=== PATIENT | female | born 1960 | race Caucasian/White ===

== ENCOUNTER → 2024-01-05 17:03 | Outpatient (REF) | payer BC, SELFPAY | LOC: WDC 17:03 | PROVIDERS: ATTENDING PHYSICIAN Obstetrics & Gynecology; FAMILY PHYSICIAN Internal Medicine | DX: Z12.31 Encounter for screening mammogram for malignant neoplasm of breast (principal) | CPT/HCPCS: 77063; 77067 ==

== ENCOUNTER → 2024-04-11 14:20 | Outpatient (REF) | payer BC, SELFPAY | LOC: RAD 14:20 | PROVIDERS: ATTENDING PHYSICIAN Obstetrics & Gynecology; FAMILY PHYSICIAN Internal Medicine | DX: Z78.0 Asymptomatic menopausal state (principal) | CPT/HCPCS: 77080 ==

== ENCOUNTER 2024-10-24 12:41 | Emergency (ER) | payer BC, SELFPAY ==
[2024-10-24 12:46] VITALS: BP 169/90
[2024-10-24 13:22] LABS: % Basophils 0.7 % (0-2); % Eosinophils 1.2 % (0-6); % Immature Granulocytes 0.3 % (0-0.5); % Lymphocytes 30.2 % (20.5-51.1); % Neutrophils 60.6 % (42.2-75.2); Absolute Basophils 0.1 10^3/uL (0-0.2); Absolute Eosinophils 0.1 10^3/uL (0-0.7); Absolute Lymphocytes 2.7 10^3/uL (1.2-3.4); Absolute Monocytes 0.6 10^3/uL (0.1-0.6); Absolute Neutrophils 5.5 10^3/uL (1.4-6.5); Hematocrit 43.8 % (37.0-47.0); Mean Corpuscular Hgb 29.3 pg (27.0-31.0); Mean Corpuscular Volume 91.6 fL (81.0-99.0); Mean Platelet Volume 9.2 fL (7.4-10.4); Nucleated Red Blood Cells % 0 %; Platelet Count 345 10^3/uL (130-400); Red Blood Cell Count 4.78 10^6/uL (4.20-5.40); Red Cell Dist. Width 12.8 % (11.5-14.5)
[2024-10-24 13:36] LABS: ALT (SGPT) 24 U/L (0-35); AST (SGOT) 29 U/L (14-36); Albumin 4.5 g/dl (3.5-5.0); Alkaline Phosphatase 115 U/L (38-126); Blood Urea Nitrogen 22 mg/dl (7-17); Calcium 9.7 mg/dl (8.4-10.2); Carbon Dioxide 31 mmol/L (22-30); Chloride 101 mmol/L (98-107); Glucose 104 mg/dl (70-99); Potassium 4.3 mmol/L (3.5-5.1); Sodium 140 mmol/L (135-145); Total Bilirubin 0.8 mg/dl (0.2-1.3); Total Protein 7.9 g/dl (6.3-8.2); eGFR > 60.00
[2024-10-24 13:43] LABS: Troponin I < 0.012 ng/ml
[2024-10-24 14:53] VITALS: BP 159/87
--- NOTE | 2024-10-24 15:44 | ED.GENMED ---
History of Present Illness
General
Chief Complaint: Abdominal Pain
Source: patient and records
Exam Limitations: none
Time Seen by Provider: 10/24/24 15:11
Nursing documentation reviewed up to this point in time: agreed with
History of Present Illness
History of Present Illness:
64-year-old female with a past medical history of hypertension, hyperlipidemia, hypothyroidism who presents to the emergency room for evaluation after episode of chest pain/epigastric pain. Patient reports onset of symptoms while she was driving at
around 11:45 AM; she says that initially she thought it was gas pain but when symptoms did not go away after few minutes she spoke with her and ultimately decided to come to the emergency to be evaluated. She says shortly after arrival here
symptoms resolved and she is now asymptomatic�she says total duration was about an hour. She describes a burning/cramping pain in the epigastrium/lower chest that radiated slightly towards the right. No clear trigger or relieving factor noted.
She denies any associated shortness of breath. She denies any nausea, vomiting, diaphoresis. She denies any dizziness or lightheadedness. Denies any palpitations. She denies any recent cough or fever and was in her normal state of health prior
to onset. She denies having had similar symptoms in the past. She denies any personal history of cardiac disease but does see Dr. Felix for routine screening due to a strong family history of heart disease including [place] in the early 60s by both her
brother and her father.
Past History
Past History
ED Past Medical History: HTN, NIDDM, Hypothyroidism and Other (Hernia that they are watching.)
ED Past Surgical History: None
Social History
Tobacco: Non-smoker
Alcohol: None
Personal:
Living: with family
Employment: Employed
Family History
Family History: Other (Noncontributory)
Review of Systems
Review of Systems
All Other Systems: ROS reviewed and negative except as documented in HPI and ROS
Constitutional: Denies fever or chills
Respiratory: Denies trouble breathing
Cardiac: Reports chest pain; Denies diaphoresis, palpitations or syncope
ABD/GI: Denies abdominal pain, nausea or vomiting
: Denies flank pain
Musculoskeletal: Denies neck pain or back pain
Neurological: Denies dizzy or headache
Phy Exam
Physical Exam
Physical Exam:
General: Awake, alert, oriented x3; no acute distress
Head: Normocephalic, atraumatic
Eyes: Conjunctiva normal, sclera anicteric
Throat: Airway intact, handling secretions
Neck: Trachea midline, supple without meningismus
Lungs: Clear to auscultation bilaterally, no wheezing, rales, rhonchi
Heart: Regular rate and rhythm, no murmurs, gallops, or rubs
Abd: Soft, non distended, nontender
Neuro: No gross deficits
Extremities: No edema in extremities, equal pulses in all extremities
Scores
Heart Failure Risk
Heart Failure Risk Score: Not Applicable
Heart Score for Chest Pain Patients
STEMI patient?: No
History: Slightly or Non-Suspicious
ECG: Normal
Age: >45 - <65 years
Risk Factors: >/= 3 Risk Factors or History of CAD
Troponin: </= Normal Limit
Heart Score for Chest Pain Patients: 3
Heart Score Risk: 2.5% MACE over next 6 weeks
Withdrawal Assessment of Alcohol
Withdrawal Assessment Completed?: Not applicable
Course
Orders/Labs/Results
Orders:
Orders
10/24/24 12:43
Electrocardiogram (*1) Urgent
Reason for Study: Chest Pain
EKG- Treatment ONCE
10/24/24 13:08
Complete Blood Count/With Diff Urgent
Comprehensive Metabolic Panel Urgent
Lipase Urgent
Comment: ADD ON
Troponin I Urgent
10/24/24 15:14
Add On- LAB Urgent
Tests Added?: lipase
10/24/24 15:31
Troponin I Urgent
10/24/24 15:44
US Abdomen Complete/Upper Urgent
Comment:
Reason For Exam: epigastric pain radiating to RUQ
Abnormal Lab Results
10/24/24
13:08
MCHC 32.0 L g/dL
(33.0-37.0)
Carbon Dioxide 31 H mmol/L
(22-30)
BUN 22 H mg/dl
(7-17)
Glucose 104 H mg/dl
(70-99)
10/24/24 13:08
10/24/24 13:08
Vital Signs
Initial and Last Documented VS:
Initial Vital Signs
Temp Pulse Resp BP Pulse Ox
36.8 C 82 20 169/90 100
10/24/24 12:46 10/24/24 12:46 10/24/24 12:46 10/24/24 12:46 10/24/24 12:46
Last Documented Vital Signs
Temp Pulse Resp BP Pulse Ox
36.8 C 79 20 159/87 100
10/24/24 12:46 10/24/24 14:53 10/24/24 12:46 10/24/24 14:53 10/24/24 14:53
MDM/Problems Addressed
Differential Diagnosis Includes:
Angina/ACS, GERD/gastritis, cholelithiasis/cholecystitis
MDM/Problems Addressed:
64-year-old female presents to the emergency room for evaluation of nonexertional/atypical lower chest/epigastric pain radiating towards the right. Symptoms lasted for about an hour and have resolved. Hypertensive but otherwise normal vitals.
Physical exam as above. She had an EKG in triage which shows no changes from prior. Labs sent in triage including a CBC and a CMP which were unremarkable, troponin which was undetectable x 1. Given timing of symptoms we will send serial repeat
troponin. Add on lipase to earlier labs. Will check an upper abdominal ultrasound as well. Monitor closely reassess after the above.
Repeat troponin undetectable. Upper abdominal sound negative for any acute pathology. Lipase normal. Vitals have been stable patient asymptomatic on clinical reassessment. Low suspicion for emergent pathology at this point in time, given her
family history will refer to cardiology for outpatient follow-up but symptoms sound atypical for anginal symptoms suspect more likely that this was episode of GERD. Will have her follow-up with cardiology and PCP as an outpatient. She feels
comfortable to this plan. All questions answered.
Chronic conditions affecting care:
Hypertension, hyperlipidemia
Acute Exacerbation and/or Progression of Chronic Illness:
Acutely hypertensive with no signs or symptoms of hypertensive emergency�no indication for emergent antihypertensives and in fact symptoms have improved without intervention
Acute Exacerbation and/or Progression of Chronic Illness: HTN
*Radiology
Radiology exam reviewed: radiology read reviewed
*Pulse Oximetry
Patient hypoxic: no
*EKG
Interpreted by ED Provider?: Yes
Comparison EKG: no changes
Heart Rate: 85
Rate: normal
Rhythm: sinus
[place]: normal axis
Interval: normal interval
QRS Pattern: normal QRS
Ischemia: non-specific ST changes
*Critical Care Note
Total Time (30-74mins, 75-104mins- exclusive of procedures): Not Applicable
Data Reviewed
Review of Other/Old Records Reveals: Records
Source: patient and records
ED Attending Note
-
Portions of this chart may have been created with voice recognition software.� Occasional wrong word or��sound alike� substitutions may have occurred due to the inherent limitations of voice recognition software.
Discharge Plan
Departure
Patient Disposition: Home (Routine Discharge)
Date of Disposition: 10/24/24
Time of Disposition: 18:03
Patient with high blood pressure during this ER visit?: Yes
Discharge Problem:
Chest pain, Hypertension
Instructions: Chest Pain CBC Follow Up, BLOOD PRESSURE
Prescriptions:
No Action
levothyroxine 25 MCG tablet
25 mcg PO DAILY
lisinopril 10 MG tablet
10 mg PO Daily Qty: 15 0RF
hydrochlorothiazide 25 MG tablet
25 mg PO Daily
loratadine 10 MG tablet
10 mg PO Daily
ascorbic acid (vitamin C) [Vitamin C] 500 MG tablet
500 mg PO DAILY
fluticasone propionate 1 SPRAY spray,suspension
1 spray inhalation DAILY
Referrals:
Major Felix MD [Active] - Call in 1-3 days for appt
Activity Restrictions/Additional Instructions:
Thank you for visiting the Emergency Department at [facility].
1. Please schedule a follow up appointment as directed. Call first thing tomorrow morning to make an appointment.
2. If indicated, please take your medications as instructed and indicated on discharge paperwork.
3. If any of your symptoms do not improve, or persist, or become more severe within 6-12 hours, please return to the emergency department for further care.
4. Please return to the emergency department if you develop a headache, neck pain/stiffness, fever greater than 100.4F, chest pain, shortness of breath, persistent nausea, vomiting, slurred speech, difficulty walking, numbness/tingling, weakness,
signs of infection or any other symptoms that are worrisome to you.
Please call [phone] if you have any questions.
Interventions
Interventions:
*Risk Screen - Suicide Last Done: 10/24/24 12:46
*General Assessment Last Done: 10/24/24 12:46
*Neglect/Abuse Screening Last Done: 10/24/24 12:46
LE-Lhqyzp-Csmqvntqtq Assessment Last Done: 10/24/24 15:37
Discharge Date and Time
Print Language: [place]
[2024-10-24 15:57] LABS: Lipase 133 U/L (23-300)
[2024-10-24 16:09] LABS: Troponin I < 0.012 ng/ml
[2024-10-24 18:12] VITALS: BP 179/93
== END 2024-10-24 18:13 | disposition home or self-care (01) ==
LOC: EMR 12:41
PROVIDERS: Emergency Medicine; EMERGENCY PHYSICIAN Emergency Medicine; FAMILY PHYSICIAN Internal Medicine
DX: R07.89 Other chest pain (principal); I10 Essential (primary) hypertension; E78.5 Hyperlipidemia, unspecified; E03.9 Hypothyroidism, unspecified
CPT/HCPCS: 99285; 76700; 80053; 83690; 84484; 85025; 93005

== ENCOUNTER → 2024-10-30 07:58 | Outpatient (REF) | payer BC, SELFPAY | LOC: DHCBC/DCA 07:58 | PROVIDERS: ATTENDING PHYSICIAN Internal Medicine; FAMILY PHYSICIAN Nurse Practitioner Adult Health | DX: R07.9 Chest pain, unspecified (principal) | CPT/HCPCS: 78452; 93017; A9500 ==

== ENCOUNTER 2024-11-07 08:58 | Day surgery (SDC) | payer BC, SELFPAY ==
[2024-11-07] VITALS (9 sets, daily range): BP systolic 123–157; BP diastolic 65–86; BMI 29.2
[2024-11-07] MEDS: NSS 239 ML IV (10:27)
[2024-11-07] MEDS: NSS 1000 IV (13:45)
--- NOTE | 2024-11-07 13:48 | ITS.CL.CATH ---
Project Coordinator - Catheterization
Cardiac Catheterization
Procedure Report:
CARDIAC CATHETERIZATION REPORT
Date of Procedure: 11/07/2024
Referring: Andres Santamaria M.D.
INDICATION: Abnormal stress test.
PROCEDURE:
1. Left heart catheterization.
2. Coronary angiography.
A total of 27 minutes of procedural/moderate sedation was utilized. An independent medical coder was present to assist with and help manage the patient's level of consciousness and physiologic status.
ACCESS:
1. 6 [place] right radial artery using a modified Seldinger technique.
CATHETERS:
1. 5 [place] JR4.
2. 5 [place] JL 3.5.
HEMODYNAMIC DATA
Weight (kg): 79.4
AO (s/d/x, mmHg): 156/78/104
LV (s/x mmHg): 162/6
LEFT VENTRICULOGRAPHY: Not performed.
CORONARY ANGIOGRAPHY
Dominance: Right.
Left Main: Normal size, bifurcating vessel. There is no coronary artery disease.
LAD: Normal size vessel giving rise to 3 significant diagonals before wrapping around the apex. There is no coronary artery disease. The distal/terminal LAD is severely tortuous immediately after the third diagonal. There is a very small
bridge in the distal LAD after the third obtuse marginal and immediately preceding the tortuous segment of the LAD.
[place]: Congenitally absent.
Circumflex: Normal size, nondominant vessel giving rise to 2 obtuse marginals. There is a 20% lesion in the proximal circumflex.
RCA: Large size, dominant vessel with a large posterolateral arcade. There is a 10-20% lesion in the mid RCA. The posterolateral branch is at least moderately tortuous.
INTERVENTION(S)
None.
Closure Device: Vascular band.
Radiation (mGy): 156.82
DAP (cm2.Gy): 9.6862
Fluoroscopy time (minutes): 2.0
CONCLUSIONS
1. Right dominant circulation with a 20% lesion in the proximal circumflex and a 10-20% lesion in the mid RCA. 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
2. Normal filling pressures (LVEDP = 6 mmHg at 79.4 kg).
3. No ischemic source for chest discomfort.
4. False positive stress test.
RECOMMENDATIONS:
1. Expectant management after cardiac catheterization via right radial approach.
2. Limited weight bearing on the right wrist for one week.
3. Continue aggressive secondary prevention with high-dose, high potency statin. Goal LDL <55.
4. Guideline directed medical therapy as hemodynamics will tolerate.
Copy to: Andres Santamaria M.D., Major Felix M.D., HAILY Quinones
Bobby Murillo DO, FACC, FACP
== END 2024-11-07 16:32 | disposition home or self-care (01) ==
LOC: CATH 08:58
PROVIDERS: ATTENDING PHYSICIAN Internal Medicine Cardiovascular Disease; FAMILY PHYSICIAN Nurse Practitioner Adult Health; OTHER PHYSICIAN Internal Medicine Cardiovascular Disease
DX: I25.10 Atherosclerotic heart disease of native coronary artery without angina pectoris (principal); R94.39 Abnormal result of other cardiovascular function study; Q24.5 Malformation of coronary vessels; R07.89 Other chest pain
CPT/HCPCS: 99152; 99153; 93458; C1894; Q9967

== ENCOUNTER → 2024-11-08 09:14 | Outpatient (REF) | payer BC, SELFPAY | LOC: HWRCS 09:14 | PROVIDERS: ATTENDING PHYSICIAN Internal Medicine; FAMILY PHYSICIAN Nurse Practitioner Adult Health | DX: R07.9 Chest pain, unspecified (principal) | CPT/HCPCS: 93306 ==

== ENCOUNTER → 2025-01-10 10:26 | Outpatient (REF) | payer BC, SELFPAY | LOC: WDC 10:26 | PROVIDERS: ATTENDING PHYSICIAN Obstetrics & Gynecology; FAMILY PHYSICIAN Nurse Practitioner Adult Health | DX: Z12.31 Encounter for screening mammogram for malignant neoplasm of breast (principal) | CPT/HCPCS: 77063; 77067 ==

== ENCOUNTER 2025-01-28 06:20 | Day surgery (SDC) | payer BC, SELFPAY | END 2025-01-28 10:35 | disposition home or self-care (01) | LOC: GI 06:20 | PROVIDERS: ATTENDING PHYSICIAN Internal Medicine Gastroenterology | DX: Z12.11 Encounter for screening for malignant neoplasm of colon (principal); K57.30 Diverticulosis of large intestine without perforation or abscess without bleeding; K64.8 Other hemorrhoids; D12.0 Benign neoplasm of cecum; K51.40 Inflammatory polyps of colon without complications; K63.5 Polyp of colon; Z86.0100 Personal history of colon polyps, unspecified | CPT/HCPCS: 45385; 45380; 88305 ==